=== PATIENT | male | born 1945 | race Caucasian/White ===

== ENCOUNTER 2023-06-27 14:44 | Emergency (ER) | payer MEDICARE, SELFPAY ==
[2023-06-27 14:48] VITALS: BP 167/50; PULSE 83; RESP 16; TEMP 36.6; O2SAT 93
[2023-06-27 14:50] VITALS: RESP 18
--- NOTE | 2023-06-27 15:40 | ED_ITS ---
HPI - Wound/Laceration General: Chief Complaint: Wound/Laceration Stated Complaint: lac right arm Time Seen by Provider: 06/27/23 15:11 History of Present Illness: 77-year-old male patient comes in today with injury to the right hand and right forearm. Patient was using a portable automatic grinder operator when it bounced on him causing it to strike his hand and forearm. Patient received some laceration and skin tear to the right hand and a laceration to the right forearm. Patient cannot recall his last tetanus shot. Patient has a history of ITP. Patient appears nontoxic. Patient is alert and oriented. Review of Systems General: Reports: 10 or more systems reviewed and unremarkable except in HPI and below Skin/Breast: Reports: new lesions Physical Exam Const: COMMON NORMALS: alert HENMT: COMMON NORMALS: atraumatic HEAD & SCALP: atraumatic Neck/C-Spine: COMMON NORMALS: full ROM Resp: COMMON NORMALS: normal respiratory effort Cardio: COMMON NORMALS: regular rate RATE: regular rate Back/Pelvis: COMMON NORMALS: thoracic and lumbar spine normal to inspection Extremity: RIGHT UPPER EXTREMITY: Yes lower arm (4 cm laceration distal right forearm), Yes wrist (2 cm superficial laceration) and Yes hand & digits (Irregular skin tear flap, 3 cm dorsal hand laceration) Neuro: SENSORIUM/ORIENTATION: Yes alert Skin: TRAUMA: laceration (Right forearm and right hand) Procedures Laceration Laceration 1: Site: hand Side (If applicable): right Size (cm): 3 Description: linear and contaminated Depth: simple, single layer Local Anesthetic: lidocaine 2% Amount of anesthesia used (mL): 3 Pre-repair: wound explored, irrigated extensively (200 mL of sterile water) and deep structures intact Skin layer closed with: nylon Size (cm): 4-0 Number of sutures: 5 Technique: simple, interrupted Laceration 2: Site: upper extremity Side (If applicable): right Size (cm): 4 Description: linear and contaminated Depth: simple, single layer Local Anesthetic: lidocaine 2% and with epi Amount of anesthesia used (mL): 4 Pre-repair: wound explored and irrigated extensively (200 mL) Skin layer closed with: nylon Size (cm): 4-0 Number of sutures: 6 Technique: simple, interrupted Course Vital Signs: Vital signs: Vital Signs Temperature 97.9 F 06/27/23 14:48 Pulse Rate 83 06/27/23 14:48 Respiratory Rate 16 06/27/23 16:34 Blood Pressure 167/50 06/27/23 14:48 Pulse Oximetry 93 06/27/23 14:48 Oxygen Delivery Me thod Room Air 06/27/23 14:48 MDM - Wound/Laceration Medical Decision Making Patient presents with injury secondary to automatic grinder operator incident. Patient has a 3 cm laceration to the dorsal right hand, irregular skin tear to the dorsal right hand, a 2 cm superficial laceration to the right wrist, and a 4 cm laceration to the dorsal distal forearm on the right side. Patient has good range of motion of the hand. No tendon injury is noted. Some particulate matter is noted within the wounds. Patient cannot recall his last tetanus. Differential diagnosis includes foreign body, tendon injury, wound contamination, fracture, laceration. No fracture or large foreign bodies were noted. Wound was contaminated with some dirt versus metal material and small particulate matter. Wound was irrigated with copious amounts of sterile water until no visible contamination. 5 sutures were used to close the hand at 6 sutures were used to close the forearm. This closure was loose in order to allow for drainage. Patient will be placed on Augmentin for coverage of infection. Tetanus was updated. Patient reports understanding of care plan need for follow-up in 1 week for recheck. Return to ED for worsening symptoms. No radiology studies performed this visit Discharge Plan Discharge Patient Disposition: Home Clinical Impression: Laceration Condition: Stable Prescriptions: New amoxicillin-pot clavulanate 875-125 mg tablet 1 tab PO BID Qty: 14 0RF Discharge Orders: Discharge ED (Routine); Ordered 06/27/23 Ordered By: Ti Bishop Referrals: Kelsey Mcdonough MD [Primary Care Provider] - Discharge Diet: Usual diet Discharge Activity: Increase activity as tolerated Patient Instructions: Care For Your Stitches (ED), Laceration (ED) Activity Restrictions/Additional Instructions: Keep wound clean and dry. Change the dressing if it becomes wet or soiled. Otherwise you can leave the dressing on for 2 to 3 days. Activity as tolerated. Give oral antibiotics as directed. Tylenol or ibuprofen as needed for pain. Ice or heat for further comfort relief. Follow-up with primary care in 1 week for recheck. Return to ER for increased pain, increased swelling to the arm, or fever greater than 100.4. Coding Level of Care Code ED Litigation Associate for Yang Suárez
[2023-06-27] MEDS: tetanus-dipt-pertussis 0.5 mL SDV IM (16:09)
[2023-06-27] MEDS: amoxicillin-clav 875-125 mg Tablet 1 TAB PO (16:09)
[2023-06-27 16:34] VITALS: RESP 16
== END 2023-06-27 17:19 | disposition home or self-care (01) ==
PROVIDERS: Emergency Provider Nurse Practitioner Family; PCP Internal Medicine
DX: S51.811A Laceration without foreign body of right forearm, initial encounter (principal); S61.511A Laceration without foreign body of right wrist, initial encounter; S61.411A Laceration without foreign body of right hand, initial encounter; W29.8XXA Contact with other powered hand tools and household machinery, initial encounter; Z23 Encounter for immunization
CPT/HCPCS: 12032; 12042; 90715; 99283

== ENCOUNTER 2024-05-07 08:58 | Oncology outpatient (recurring) (ONCR) | payer MEDICARE, OTHER, SELFPAY ==
[2024-05-07 11:18] LABS: Reticulocyte % 1.2 % (0.5-2.0)
[2024-05-07 11:21] LABS: Basophils # 0.1 10^3/uL (0.0-0.1); Eosinophils # 0.3 10^3/uL (0.0-0.8); Eosinophils % 4.6 %; Lymphocytes # 1.3 10^3/uL (0.8-4.8); Lymphocytes % 18.9 %; Mean Corpuscular Hemoglobin 29.3 pg (27-33); Mean Corpuscular Volume 88.7 fl (82-101); Mean Platelet Volume 9.9 fL (7.4-10.4); Monocytes # 0.5 10^3/uL (0.2-0.9); Monocytes % 6.6 %; Neutrophils # 4.73 10^3/uL (1.8-7.7); Neutrophils % 68.5 %; Nucleated Red Blood Cells % 0 %; Platelet Count 34 10^3/cmm (157-399); Red Blood Count 5.64 10^6/uL (3.85-5.65); White Blood Count 6.92 10^3/uL (3.29-11.43)
[2024-05-07 11:26] LABS: Erythrocyte Sedimentation Rate 16 mm/hr (0-10)
[2024-05-07 11:34] LABS: INR 0.84 (0.8-1.2)
[2024-05-07 11:35] LABS: Partial Thromboplastin Time 33.3 SECONDS (23.9-36.7)
[2024-05-07 11:40] LABS: Alanine Aminotransferase 21 U/L (0-41); Albumin Level 4.2 g/dL (3.5-5.2); Alkaline Phosphatase 77 U/L (40-130); Aspartate Amino Transferase 15 U/L (0-40); Blood Urea Nitrogen 10 mg/dL (8-23); Calcium 8.8 mg/dL (8.5-10.5); Carbon Dioxide 28 mmol/L (22-29); Chloride 100 mmol/L (98-107); Globulin 2.8 g/dL (1.3-4.6); Glucose 139 mg/dL (65-115); Osmolality Calculated 287 mOsm/kg (285-295); Sodium 138 mmol/L (136-145); Total Bilirubin 0.4 mg/dL (0.15-1.2)
[2024-05-07 11:41] LABS: Anion Gap 14.1 (5-19); Lactate Dehydrogenase 156 U/L (135-225); Potassium 4.1 mmol/L (3.5-5.1)
[2024-05-13 16:23] LABS: Factor Viii, Activity 61 % normal (50-180); Partial Thromboplastin Time, A 32 sec (23-32)
[2024-05-13 16:53] LABS: Von Willebrand Factor (Rcf) 75 % normal (42-200); Von Willebrand Factor Ag 82 % (50-217)
== END 2024-05-09 23:59 | disposition home or self-care (01) ==
PROVIDERS: PCP Internal Medicine; Visit Provider Internal Medicine
DX: R23.3 Spontaneous ecchymoses (principal); D69.6 Thrombocytopenia, unspecified; E11.9 Type 2 diabetes mellitus without complications; E66.09 Other obesity due to excess calories; Z68.35 Body mass index [BMI] 35.0-35.9, adult; J33.9 Nasal polyp, unspecified; J44.9 Chronic obstructive pulmonary disease, unspecified; E78.5 Hyperlipidemia, unspecified; Z87.09 Personal history of other diseases of the respiratory system; F17.220 Nicotine dependence, chewing tobacco, uncomplicated
CPT/HCPCS: 36415; 71046; 80053; 83615; 85025; 85045; 85240; 85245; 85246; 85610; 85651; 85730; 86140; 86880; 99204

== ENCOUNTER 2024-05-30 15:30 | Oncology outpatient (recurring) (ONCR) | payer MEDICARE, OTHER, SELFPAY ==
--- NOTE | 2024-05-30 09:45 | US_ITS ---
WS: [id number] ULTRASOUND ABDOMEN CLINICAL INFORMATION: thrombocytopenia COMPARISON: None. FINDINGS: Liver Size: Mild hepatomegaly. Craniocaudal length: 17.9 cm. Echogenicity: Coarse Surface nodularity: None. Mass (size and location): None. Bile ducts Intrahepatic ducts: Normal. Common bile duct diameter: 0.3 cm. Gallbladder Normal. Gallstones: None. Gallbladder sludge: None. Gallbladder wall thickening: None. Pericholecystic fluid: None. Sonographic Jimenez sign: Absent. Pancreas Not well visualized Limited visualization of the spleen due to shadowing bowel Splenomegaly: None. Craniocaudal length: 11.8 cm. Right kidney: Normal. Hydronephrosis: None. Size: 10.8 cm x 5.1 cm x 4.9 cm Left kidney: Normal. Hydronephrosis: None. Size: 11.8 cm x 5.0 cm x 5.7 cm. Abdominal aorta and IVC Visualized portions are normal. Ascites: None. US/US abdomen complete* [id number] IMPRESSION: 1. Mild hepatomegaly with coarse hepatic echogenicity. Recommend correlation w ith liver function tests. 2. No hydronephrosis in either kidney. 3. Normal gallbladder. Normal common bile duct. 4. Pancreas not well visualized. 5. Splenic granulomas. Spleen measures approximately 11.8 cm [id number] with in normal limits. Limited visualization due to bowel gas
== END 2024-06-06 23:59 | disposition home or self-care (01) ==
LOC: ONCMED 15:32 → RAD 15:34 → ONCMED 06-02 09:13
PROVIDERS: PCP Internal Medicine; Visit Provider Internal Medicine
DX: J33.9 Nasal polyp, unspecified (principal); E66.09 Other obesity due to excess calories; R23.3 Spontaneous ecchymoses; E11.9 Type 2 diabetes mellitus without complications; D69.6 Thrombocytopenia, unspecified; D73.89 Other diseases of spleen; R16.0 Hepatomegaly, not elsewhere classified
CPT/HCPCS: 76700

== ENCOUNTER 2024-06-25 11:45 | Oncology outpatient (recurring) (ONCR) | payer MEDICARE, OTHER, SELFPAY ==
[2024-06-11 13:28] LABS: Basophils # 0.1 10^3/uL (0.0-0.1); Basophils % 0.9 %; Eosinophils # 0.3 10^3/uL (0.0-0.8); Eosinophils % 4.2 %; Hematocrit 47.8 % (37-53); Lymphocytes # 1.4 10^3/uL (0.8-4.8); Lymphocytes % 19.9 %; Mean Corpuscular HGB Conc 33.1 g/dL (30-55); Mean Corpuscular Hemoglobin 28.9 pg (27-33); Mean Corpuscular Volume 87.4 fl (82-101); Mean Platelet Volume 10.7 fL (7.4-10.4); Monocytes # 0.5 10^3/uL (0.2-0.9); Monocytes % 6.8 %; Neutrophils # 4.67 10^3/uL (1.8-7.7); Neutrophils % 67.9 %; Nucleated Red Blood Cells % 0 %; Platelet Count 46 10^3/cmm (157-399); Red Blood Count 5.47 10^6/uL (3.85-5.65); Red Cell Distribution Width 13.1 % (12.1-15.1); White Blood Count 6.88 10^3/uL (3.29-11.43)
[2024-06-11 13:30] LABS: Erythrocyte Sedimentation Rate 15 mm/hr (0-10)
[2024-06-11 13:55] LABS: Alanine Aminotransferase 19 U/L (0-41); Albumin Level 4.1 g/dL (3.5-5.2); Alkaline Phosphatase 79 U/L (40-130); Anion Gap 15.7 (5-19); Aspartate Amino Transferase 16 U/L (0-40); Blood Urea Nitrogen 15 mg/dL (8-23); Calcium 8.9 mg/dL (8.5-10.5); Carbon Dioxide 24 mmol/L (22-29); Chloride 102 mmol/L (98-107); Globulin 2.4 g/dL (1.3-4.6); Glucose 192 mg/dL (65-115); Osmolality Calculated 292 mOsm/kg (285-295); Potassium 3.7 mmol/L (3.5-5.1); Sodium 138 mmol/L (136-145); Total Bilirubin 0.3 mg/dL (0.15-1.2); Total Protein 6.5 g/dL (6.6-8.7); Uric Acid 5.4 mg/dL (3.4-7.0)
[2024-06-11 13:57] LABS: Lactate Dehydrogenase 141 U/L (135-225)
[2024-06-25 12:09] LABS: Basophils # 0.1 10^3/uL (0.0-0.1); Basophils % 1.2 %; Eosinophils # 0.3 10^3/uL (0.0-0.8); Hematocrit 48.9 % (37-53); Lymphocytes # 1.3 10^3/uL (0.8-4.8); Lymphocytes % 20.6 %; Mean Corpuscular HGB Conc 32.7 g/dL (30-55); Mean Corpuscular Hemoglobin 28.5 pg (27-33); Mean Corpuscular Volume 87.2 fl (82-101); Mean Platelet Volume 9.9 fL (7.4-10.4); Monocytes # 0.4 10^3/uL (0.2-0.9); Monocytes % 6.2 %; Neutrophils # 4.31 10^3/uL (1.8-7.7); Neutrophils % 66.7 %; Nucleated Red Blood Cells % 0 %; Platelet Count 41 10^3/cmm (157-399); Red Blood Count 5.61 10^6/uL (3.85-5.65); Red Cell Distribution Width 13.3 % (12.1-15.1); White Blood Count 6.46 10^3/uL (3.29-11.43)
[2024-06-25 12:12] LABS: Erythrocyte Sedimentation Rate 15 mm/hr (0-10)
[2024-06-25 12:25] LABS: Alanine Aminotransferase 16 U/L (0-41); Alkaline Phosphatase 75 U/L (40-130); Aspartate Amino Transferase 15 U/L (0-40); Blood Urea Nitrogen 15 mg/dL (8-23); Calcium 8.9 mg/dL (8.5-10.5); Carbon Dioxide 26 mmol/L (22-29); Chloride 102 mmol/L (98-107); Glucose 160 mg/dL (65-115); Lactate Dehydrogenase 132 U/L (135-225); Osmolality Calculated 294 mOsm/kg (285-295); Sodium 140 mmol/L (136-145); Total Bilirubin 0.4 mg/dL (0.15-1.2); Uric Acid 5.4 mg/dL (3.4-7.0)
== END 2024-07-07 23:59 | disposition home or self-care (01) ==
PROVIDERS: PCP Internal Medicine; Visit Provider Internal Medicine
DX: Z53.9 Procedure and treatment not carried out, unspecified reason (principal); R23.3 Spontaneous ecchymoses; D69.6 Thrombocytopenia, unspecified; J33.9 Nasal polyp, unspecified; E66.09 Other obesity due to excess calories; Z68.35 Body mass index [BMI] 35.0-35.9, adult; E11.9 Type 2 diabetes mellitus without complications
CPT/HCPCS: 36415; 80053; 83615; 84550; 85025; 85240; 85245; 85246; 85247; 85651; 86140; 99213

== ENCOUNTER 2024-07-24 08:00 | Oncology outpatient (recurring) (ONCR) | payer MEDICARE, OTHER, SELFPAY ==
[2024-07-09 09:24] LABS: Basophils # 0.1 10^3/uL (0.0-0.1); Basophils % 1.3 %; Eosinophils # 0.3 10^3/uL (0.0-0.8); Eosinophils % 5.7 %; Lymphocytes # 1.3 10^3/uL (0.8-4.8); Lymphocytes % 23.6 %; Mean Corpuscular HGB Conc 33.4 g/dL (30-55); Mean Corpuscular Hemoglobin 29.1 pg (27-33); Mean Platelet Volume 10.5 fL (7.4-10.4); Monocytes # 0.4 10^3/uL (0.2-0.9); Monocytes % 7.1 %; Neutrophils % 62.1 %; Nucleated Red Blood Cells % 0 %; Platelet Count 41 10^3/cmm (157-399); Red Cell Distribution Width 13.2 % (12.1-15.1); White Blood Count 5.47 10^3/uL (3.29-11.43)
[2024-07-09 09:47] LABS: Alanine Aminotransferase 14 U/L (0-41); Albumin Level 4.2 g/dL (3.5-5.2); Alkaline Phosphatase 69 U/L (40-130); Aspartate Amino Transferase 13 U/L (0-40); Blood Urea Nitrogen 10 mg/dL (8-23); Calcium 8.6 mg/dL (8.5-10.5); Carbon Dioxide 24 mmol/L (22-29); Chloride 103 mmol/L (98-107); Globulin 2.4 g/dL (1.3-4.6); Glucose 135 mg/dL (65-115); Lactate Dehydrogenase 110 U/L (135-225); Osmolality Calculated 285 mOsm/kg (285-295); Sodium 137 mmol/L (136-145); Total Bilirubin 0.5 mg/dL (0.15-1.2); Total Protein 6.6 g/dL (6.6-8.7); Uric Acid 5.3 mg/dL (3.4-7.0)
[2024-07-24 08:21] LABS: Basophils # 0.1 10^3/uL (0.0-0.1); Basophils % 0.8 %; Eosinophils # 0.3 10^3/uL (0.0-0.8); Eosinophils % 4.7 %; Hematocrit 48.2 % (37-53); Lymphocytes # 1.4 10^3/uL (0.8-4.8); Mean Corpuscular HGB Conc 32.8 g/dL (30-55); Mean Corpuscular Hemoglobin 28.6 pg (27-33); Mean Corpuscular Volume 87.3 fl (82-101); Mean Platelet Volume 11.7 fL (7.4-10.4); Monocytes # 0.4 10^3/uL (0.2-0.9); Neutrophils # 3.97 10^3/uL (1.8-7.7); Neutrophils % 64.3 %; Nucleated Red Blood Cells % 0 %; Platelet Count 36 10^3/cmm (157-399); Red Blood Count 5.52 10^6/uL (3.85-5.65); Red Cell Distribution Width 13.2 % (12.1-15.1); White Blood Count 6.17 10^3/uL (3.29-11.43)
[2024-07-24 08:37] LABS: Erythrocyte Sedimentation Rate 21 mm/hr (0-10); Lactate Dehydrogenase 151 U/L (135-225); Uric Acid 5.6 mg/dL (3.4-7.0)
== END 2024-08-06 23:59 | disposition home or self-care (01) ==
PROVIDERS: Internal Medicine Medical Oncology; PCP Internal Medicine; Visit Provider Internal Medicine
DX: Z53.9 Procedure and treatment not carried out, unspecified reason; R03.0 Elevated blood-pressure reading, without diagnosis of hypertension; D69.6 Thrombocytopenia, unspecified; J33.9 Nasal polyp, unspecified; Z72.0 Tobacco use; R58 Hemorrhage, not elsewhere classified; R60.0 Localized edema
CPT/HCPCS: 36415; 80053; 83615; 84550; 85025; 85651; 86140; 99213